=== PATIENT | female | born 1935 | race Caucasian/White ===

== ENCOUNTER → 2025-02-28 | Outpatient (REF) | payer MEDICARE, BC | LOC: M SMT 13:04 | PROVIDERS: ATTEND Physician Assistant | DX: C67.9 Malignant neoplasm of bladder, unspecified (principal) ==

== ENCOUNTER → 2025-04-08 | Outpatient (REF) | payer MEDICARE, BC | LOC: M SMT 17:01 | PROVIDERS: ATTEND Urology | DX: C67.9 Malignant neoplasm of bladder, unspecified (principal); N30.00 Acute cystitis without hematuria ==